=== PATIENT | female | born 1995 | race Caucasian/White ===

== ENCOUNTER 2019-05-19 18:34 | Emergency (ER) | payer SELFPAY ==
--- NOTE | 2019-05-19 18:51 | Emergency Department Record ---
History of Present Illness - General Chief complaint: Female Urogenital Problem Stated complaint: MAY BE PREG AND HAS CRAMPS Time Seen by Provider: 05/19/19 18:36 Source: Patient, Family Mode of Arrival: Ambulatory Limitations: No limitations - History of Present Illness Initial comments: 23 yo female presents with a concern that she is and has some cramping. She has a history of irregular menstrual cycles due to PCOS. She had developed some breast tenderness and nausea so she took a test on Thursday. Her home urine test was positive. She has had a slight tingle of spotting. No prior . PCP is Jameel Cristobal in [place]. Last normal cycle was March. A few months in between cycles is not unusual. -: Days(s) Location: Suprapubic Radiation: Non-radiating Severity: Mild Quality: Aching, Cramping Consistency: Intermittent Improves with: None Worsens with: None Patient : Yes (Home positive test) Associated Symptoms: Abdominal pain, Loss of appetite, Vaginal bleeding (slight spotting) - Related Data Sexually active: Yes Home Medications Medication Instructions Recorded Confirmed Last Taken No Home Med [NO HOME MEDS] 05/19/19 05/19/19 Unknown Allergies Allergy/AdvReac Type Severity Reaction Status Date / Time diphenhydramine HCl Allergy HIVES Verified 05/19/19 18:47 [From Benadryl] Penicillins Allergy HIVES Verified 05/19/19 18:47 Review of Systems Constitutional: Denies: Chills, Fever, Malaise, Weakness Eyes: Denies: Eye discharge, Eye pain, Photophobia, Vision change ENT: Denies: Congestion, Throat pain Respiratory: Denies: Cough, Dyspnea Cardiovascular: Denies: Chest pain, Palpitations, Syncope Endocrine: Denies: Fatigue, Polydipsia, Polyuria Gastrointestinal: Reports: Abdominal pain, Nausea. Denies: Diarrhea, Vomiting Genitourinary: Denies: Dysuria, Urgency Musculoskeletal: Denies: Arthralgia, Back pain, Myalgia Skin: Denies: Bruising, Change in color, Rash Neurological: Denies: Headache Psychiatric: Denies: Anxiety Hematological/Lymphatic: Denies: Easy bleeding, Easy bruising Past Medical History - SOCIAL HISTORY Smoking Status: Never smoker - RESPIRATORY Hx Respiratory Disorders: Yes Hx Asthma: Yes - CARDIOVASCULAR Hx Cardio Disorders: No - NEURO Hx Neuro Disorders: No - GI Hx GI Disorders: Yes Hx Reflux: Yes - Hx Genitourinary Disorders: Yes Comment:: Polycystic Ovarian Syndrome - ENDOCRINE Hx Endocrine Disorders: Yes Hx Thyroid Disease: Yes - MUSCULOSKELETAL Hx Musculoskeletal Disorders: No - PSYCH Hx Psych Problems: No - HEMATOLOGY/ONCOLOGY Hx Hematology/Oncology Disorders: No Family Medical History Hx Cancer: Mother, Grandparents Physical Exam - General General Appearance: Alert, Oriented x3, Cooperative, No acute distress Limitations: No limitations - Head Head exam: Atraumatic, Normal inspection - Eye Eye exam: Normal appearance. negative: Conjunctival injection, Scleral icterus - ENT ENT exam: Normal exam Ear exam: Normal external inspection Nasal Exam: Normal inspection Mouth exam: Normal external inspection - Neck Neck exam: Normal inspection - Respiratory Respiratory exam: Normal lung sounds bilaterally. negative: Respiratory distress - Cardiovascular Cardiovascular Exam: Regular rate, Normal rhythm, Normal heart sounds - GI/Abdominal GI/Abdominal exam: Soft. negative: Distended, Guarding, Hypoactive bowel sounds, Rebound, Rigid, Tenderness - Rectal Rectal exam: Deferred - exam: Adnexal tenderness (L) (minimal), Adnexal tenderness (R) (minimal), Normal bimanual exam, Normal speculum exam, Vaginal discharge (minimal thin white). negative: Abnormal external exam, Adnexal mass (L), Adnexal mass (R), Cervical discharge, cervical motion tenderness, Vaginal bleeding, Vaginal erythema - Extremities Extremities exam: Normal inspection - Back Back exam: Denies: CVA tenderness (R), CVA tenderness (L) - Neurological Neurological exam: Alert, Oriented X3 - Psychiatric Psychiatric exam: Normal affect, Normal mood. negative: Agitated, Anxious - Skin Skin exam: Dry, Intact, Normal color, Warm Course - Reevaluation(s) Reevaluation #1: 05/19/19 19:28 The CBC was reviewed WBC is 14.8 otherwise normal No left shift 05/19/19 19:29 05/19/19 20:00 The Wet prep is negative The HCG total is 9490 Rh + 05/19/19 20:04 I discussed the options at this point. I recommend US to further evaluate. I discussed the option of transfer tonight or return in 11 hours for US at [facility]. She has not pain. Vital are normal. The patient prefers to return in the morning. I think this is very reasonable and safe. I think the likelihood of ectopic is very low based on her symptoms, examination and current state of comfort. We discussed the recommendation to immediately go to [facility] ED if pain occurs between now and 7am. She is judged to be very reliable and will comply if any return of pain Medical Decision Making - Lab Data Result diagrams: 05/19/19 19:18 05/19/19 19:18 Disposition Disposition: Discharge Clinical Impression: Pelvic pain Qualifiers: Weeks of gestation: less than 8 weeks Qualified Code(s): Z3A.01 - Less than 8 weeks gestation of Disposition: Home, Self-Care Condition: (1) Good Instructions: Threatened Miscarriage (ED) Additional Instructions: Return at 7am for an ultrasound Be seen immediately if you have pain prior to 7am Return at 6:45am to check in Drink 2 large glasses (32 ounce) of water 45 minutes prior to returning and do not urinate prior to the ultrasound You have been given a number Referrals: Cathryn Jorgensen D.O. [DOCTOR OF OSTEOPATH] - Forms: Patient Portal Access Time of Disposition: 20:12 Quality - Quality Measures Quality Measures: N/A - Blood Pressure Screening Does Patient Have Any of the Following: No Blood Pressure Classification: Hypertensive Reading Systolic Measurement: 134 Diastolic Measurement: 103 Screening for High Blood Pressure: < Pre-Hypertensive BP, F/U Documented > [G8950] Pre-Hypertensive Follow-up Interventions: Referral to alternative/primary care provider.
[2019-05-19 18:57] LABS: URINE APPEARANCE CLEAR; URINE BILIRUBIN NEGATIVE (NEGATIVE); URINE BLOOD TRACE-I (NEGATIVE); URINE COLOR YELLOW; URINE KETONE 15 mg/dL (NEGATIVE); URINE LEUKOCYTE ESTERASE NEGATIVE (NEGATIVE); URINE NITRITE NEGATIVE (NEGATIVE); URINE PROTEIN NEGATIVE (NEGATIVE); URINE UROBILINOGEN 0.2 E.U./dL (0.20 - 1.00)
[2019-05-19 19:11] LABS: URINE AMORPHOUS SEDIMENT 1+; URINE EPITHELIAL CELLS 16 - 20 (FEW); URINE GLUCOSE (UA) >=1000 mg/dL (NEGATIVE)
[2019-05-19] MEDS ORDERED: 0.9 % SODIUM CHLORIDE 1,000 ML BAG IV ONE (19:13)
[2019-05-19 19:26] LABS: ABSOLUTE NEUTROPHIL COUNT 10.37; BASO % 0.4 % (0-6); EOS % 1.3 % (0-6); GRAN % 69.9 % (47-80); HEMATOCRIT 46.2 % (35.0-47.0); HEMOGLOBIN 15.3 gm/dl (11.6-16.0); LYMPH % 22.3 % (16-45); MEAN CELL VOLUME 88.5 fl (81-97); MEAN CORPUSCULAR HEMOGLOBIN 29.3 pg (27-33); MEAN CORPUSCULAR HGB CONC 33.1 g/dl (32-36); MEAN PLATELET VOLUME 10.4 fl (7.4-10.4); MONO % 6.1 % (0-9); PLATELET COUNT 377 K/uL (130-400); RED BLOOD COUNT 5.22 M/uL (3.80-5.40); RED CELL DISTRIBUTION WIDTH 12.4 % (11.5-14.5); WHITE BLOOD COUNT W/O DIFF 14.8 K/uL (4.2-12.2)
[2019-05-19 19:41] LABS: TOTAL B-hCG 9490 mIU/mL
[2019-05-19 19:46] LABS: BLOOD UREA NITROGEN 10 mg/dL (6-20); CREATININE 0.5 mg/dL (0.5-0.9); EST GLOMERULAR FILTRATION RATE > 60 mL/min
[2019-05-19 19:49] LABS: GLUCOSE,RANDOM 235 mg/dL (74-109)
== END 2019-05-19 20:21 | disposition home or self-care (01) ==
LOC: ER 18:34
DX: O26.891 Other specified pregnancy related conditions, first trimester (principal); R10.2 Pelvic and perineal pain; Z3A.01 Less than 8 weeks gestation of pregnancy
CPT/HCPCS: 80048; 81001; 84702; 85025; 86901; 87210; 99284; J7030

== ENCOUNTER 2019-05-20 06:51 | Emergency (ER) | payer SELFPAY ==
--- NOTE | 2019-05-20 07:03 | Emergency Department Record ---
History of Present Illness <Tran Edmonds - Last Filed: 05/20/19 08:38> - General Source: Patient Mode of Arrival: Ambulatory Limitations: No limitations - History of Present Illness Initial comments: 23 yo female presents for a recheck and pelvic US. She was seen in the ED with a concern that she could be and had some cramping. HCG quant was 9460. She reports no significant pain since initial visit. This is her first . She has a history of PCOS as well. Onset/Timin -: Days(s) Location: Suprapubic Radiation: Other Severity: Mild Quality: Other Consistency: Intermittent Improves with: None Worsens with: None Associated Symptoms: Other (spotting) <GILBERTO CORDOVA - Last Filed: 05/22/19 07:01> - General Chief complaint: Recheck - Other Stated complaint: RECHECK Time Seen by Provider: 05/20/19 06:55 - Related Data Allergies Allergy/AdvReac Type Severity Reaction Status Date / Time diphenhydramine HCl Allergy HIVES Verified 05/19/19 18:47 [From Benadryl] Penicillins Allergy HIVES Verified 05/19/19 18:47 Travel Screening - Travel/Exposure Within Last 30 Days Have you traveled within the last 30 days?: No - Travel/Exposure Within Last Year Have you traveled outside the [place] in the last year?: No - Additonal Travel Details Have you been exposed to anyone with a communicable illness?: No - Travel Symptoms Symptom Screening: None <GILBERTO CORDOVA - Last Filed: 05/22/19 07:01> Review of Systems Constitutional: Denies: Chills, Fever, Malaise, Weakness Eyes: Denies: Eye discharge ENT: Denies: Congestion, Throat pain Respiratory: Denies: Cough Cardiovascular: Denies: Chest pain Endocrine: Denies: Fatigue Gastrointestinal: Reports: Abdominal pain. Denies: Diarrhea, Nausea, Vomiting Genitourinary: Reports: Abnormal menses. Denies: Dysuria, Urgency Musculoskeletal: Denies: Arthralgia, Back pain Skin: Denies: Bruising, Change in color, Rash Neurological: Denies: Headache Psychiatric: Denies: Anxiety Hematological/Lymphatic: Denies: Easy bleeding, Easy bruising <GILBERTO CORDOVA - Last Filed: 05/22/19 07:01> Past Medical History - SOCIAL HISTORY Smoking Status: Never smoker Alcohol Use: None Drug Use: None - RESPIRATORY Hx Respiratory Disorders: Yes Hx Asthma: Yes - CARDIOVASCULAR Hx Cardio Disorders: No - NEURO Hx Neuro Disorders: No - GI Hx GI Disorders: Yes Hx Reflux: Yes - Hx Genitourinary Disorders: Yes Comment:: Polycystic Ovarian Syndrome - ENDOCRINE Hx Endocrine Disorders: Yes Hx Thyroid Disease: Yes - MUSCULOSKELETAL Hx Musculoskeletal Disorders: No - PSYCH Hx Psych Problems: No - HEMATOLOGY/ONCOLOGY Hx Hematology/Oncology Disorders: No <GILBERTO CORDOVA - Last Filed: 05/22/19 07:01> Family Medical History Any Significant Family History?: Yes Hx Cancer: Mother, Grandparents <GILBERTO CORDOVA - Last Filed: 05/22/19 07:01> Physical Exam - General General Appearance: Alert, Oriented x3, Cooperative, No acute distress Limitations: No limitations - Head Head exam: Atraumatic, Normal inspection - Eye Eye exam: Normal appearance - ENT ENT exam: Normal exam Ear exam: Normal external inspection Nasal Exam: Normal inspection Mouth exam: Normal external inspection - Neck Neck exam: Normal inspection - Respiratory Respiratory exam: negative: Respiratory distress - Cardiovascular Cardiovascular Exam: Regular rate, Normal rhythm, Normal heart sounds - GI/Abdominal GI/Abdominal exam: Soft. negative: Tenderness - Rectal Rectal exam: Deferred - exam: Deferred - Extremities Extremities exam: Normal inspection - Back Back exam: Denies: CVA tenderness (R), CVA tenderness (L) - Neurological Neurological exam: Alert, Oriented X3 - Psychiatric Psychiatric exam: Normal affect, Normal mood - Skin Skin exam: Dry, Intact, Normal color, Warm <GILBERTO CORDOVA - Last Filed: 05/22/19 07:01> Course Vital Signs 05/20/19 06:55 Temperature 97.7 F Pulse Rate [ 74 Pulse Ox Probe] Respiratory 20 Rate Blood Pressure 120/80 [Left Arm] Pulse Ox 100 <Tran Edmonds - Last Filed: 05/20/19 08:38> Vital Signs 05/20/19 06:55 Temperature 97.7 F Pulse Rate [ 74 Pulse Ox Probe] Respiratory 20 Rate Blood Pressure 120/80 [Left Arm] Pulse Ox 100 - Reevaluation(s) Reevaluation #1: 05/20/19 06:59 The case was signed out at shift change to Dr Edmonds for US and results <GILBERTO CORDOVA - Last Filed: 05/22/19 07:01> Disposition Disposition: Discharge <Tran Edmonds Foster - Last Filed: 05/20/19 08:38> Disposition: Discharge Time of Disposition: 06:59 <GILBERTO CORDOVA - Last Filed: 05/22/19 07:01> Clinical Impression: Threatened in early Disposition: Home, Self-Care Condition: (1) Good Instructions: Threatened Miscarriage (ED) Additional Instructions: follow up with ob doctor. return sooner if worse. rest. no sex for 2 weeks. have lab test repeated in 2-3 days. Forms: Patient Portal Access Quality - Quality Measures Quality Measures: N/A - Blood Pressure Screening Does Patient Have Any of the Following: No Blood Pressure Classification: Pre-Hypertensive BP Reading Systolic Measurement: 120 Diastolic Measurement: 80 Screening for High Blood Pressure: < Pre-Hypertensive BP, F/U Documented > [G8950] Pre-Hypertensive Follow-up Interventions: Follow-up with rescreen every year. <Tran Edmonds Foster - Last Filed: 05/20/19 08:38> - : US Determination US Determination of Location: < Trans-Abdominal or Trans-Vaginal US Performed > [G8806] - Blood Pressure Screening Does Patient Have Any of the Following: No Blood Pressure Classification: Pre-Hypertensive BP Reading Systolic Measurement: 127 Diastolic Measurement: 88 Screening for High Blood Pressure: < Pre-Hypertensive BP, F/U Documented > [G8950] Pre-Hypertensive Follow-up Interventions: Referral to alternative/primary care provider. <GILBERTO CORDOVA - Last Filed: 05/22/19 07:01>
--- NOTE | 2019-05-20 08:29 | ULTRASOUND REPORT ---
EXAMINATION: Ultrasound Uterus Less Than 14 Weeks EXAM DATE: 05/20/2019 8:14 AM TECHNIQUE: Transabdominal and transvaginal ultrasound imaging of the pelvis was performed. Images we re recorded and stored on PACS. INDICATION: spotting COMPARISON: None. FINDINGS: Location: Intrauterine. Gestational sac: Normal. Yolk sac: Present pole: Present Embryo heart rate: 163 BPM. Normal. Placenta: Too early to evaluate.. position: Early gestation, not applicable. Gestation: Steinberg . Amniotic fluid: Normal volume. Additional findings: None. Biometry: Kinsman-rump length: 0.36 cm. 5 weeks 6 days. MINA 01/14/2020 Mean gestational sac size: 1.4 cm Clinical gestational age from LMP: 7 weeks, 2 days. MINA: 01/04/2020 Best gestational age determined by ultrasound. Maternal Pelvis: Uterus: No abnormality in the visualized uterus. Cervix: Unremarkable cervical, transabdominal technique. Right ovary: Duplex Doppler interrogation reveals appropriate arterial and venous blood flow. There is a 1.3 cm simple corpus luteum. Ovary measures 4.4 x 3.0 x 5.5 cm Left ovary: Duplex Doppler interrogation reveals appropriate arterial and venous blood flow. Ovary m easures 2.8 x 2.1 x 5.6 cm. Cul-de-sac: Unremarkable. IMPRESSION: Single live intrauterine of 5 weeks, 6 days gestational age by current ultrasound. MINA: 01/14/2020 Otherwise unremarkable. No specific abnormalities at this time. Dictated by: Jaun Messina DO on 05/20/2019 8:21 AM. .
== END 2019-05-20 09:15 | disposition home or self-care (01) ==
LOC: ER 06:51
DX: O20.0 Threatened abortion (principal); Z3A.01 Less than 8 weeks gestation of pregnancy
CPT/HCPCS: 76801; 76817; 99283

== ENCOUNTER 2019-08-05 02:26 | Emergency (ER) | payer SELFPAY ==
--- NOTE | 2019-08-05 02:49 | Emergency Department Record ---
History of Present Illness - General Chief complaint: complication Stated complaint: POSSIBLE M/C Time Seen by Provider: 08/05/19 02:29 Source: Patient Mode of Arrival: Ambulatory Limitations: No limitations - History of Present Illness Initial comments: 24 yo at 14 weeks gestation presents to ED for evaluation of vaginal bleeding symptoms that began approximately 1 hour prior to arrival. Patient reports uterine cramping symptoms for the past several days with mild spotting present, reports that she has not seen her OB ([facility]) as of yet, has appointment scheduled in 4 days. Patient denies fevers, chills, or recent illness, and denies previous history of bleeding disorders. MD Complaint: Abdominal pain, Vaginal bleeding -: Days(s) Location: Pelvis Radiation: None Severity: Moderate Quality: Cramping Consistency: Constant Improves with: None Worsens with: None Associated symptoms: Denies other symptoms Vaginal bleeding: Heavy No complications No complications - Related Data Home Medications Medication Instructions Recorded Confirmed Last Taken [id number]/Iron/Folic Acid/Dha 1 cap PO DAILY 08/05/19 08/05/19 08/04/19 [Prena1 Shonna Softgel] Allergies Allergy/AdvReac Type Severity Reaction Status Date / Time diphenhydramine HCl Allergy HIVES Verified 05/19/19 18:47 [From Benadryl] Penicillins Allergy HIVES Verified 05/19/19 18:47 Review of Systems Constitutional: Denies: Chills, Fever, Malaise, Night sweats Eyes: Denies: Eye discharge, Eye pain ENT: Denies: Congestion, Ear pain, Epistaxis Respiratory: Denies: Cough, Dyspnea Cardiovascular: Denies: Chest pain, Dyspnea on exertion Endocrine: Denies: Fatigue, Heat or cold intolerance Gastrointestinal: Reports: Abdominal pain. Denies: Nausea, Vomiting Genitourinary: Denies: Incontinence, Retention Musculoskeletal: Denies: Arthralgia, Back pain Skin: Denies: Bruising, Change in color Neurological: Denies: Abnormal gait, Confusion, Headache, Seizure Psychiatric: Denies: Anxiety Hematological/Lymphatic: Denies: Anemia, Blood Clots Past Medical History - SOCIAL HISTORY Smoking Status: Never smoker Drug Use: None - RESPIRATORY Hx Respiratory Disorders: Yes Hx Asthma: Yes - CARDIOVASCULAR Hx Cardio Disorders: No - NEURO Hx Neuro Disorders: No - GI Hx GI Disorders: Yes Hx Reflux: Yes - Hx Genitourinary Disorders: Yes Comment:: Polycystic Ovarian Syndrome - ENDOCRINE Hx Endocrine Disorders: Yes Hx Thyroid Disease: Yes - MUSCULOSKELETAL Hx Musculoskeletal Disorders: No - PSYCH Hx Psych Problems: No - HEMATOLOGY/ONCOLOGY Hx Hematology/Oncology Disorders: No Family Medical History Hx Cancer: Mother, Grandparents Physical Exam - General General Appearance: Alert, Oriented x3, Cooperative, Mild distress, Anxious Limitations: No limitations - Head Head exam: Atraumatic, Normocephalic, Normal inspection Head exam detail: negative: Abrasion, Contusion, Roa's sign, General tenderness, Hematoma, Laceration - Eye Eye exam: Normal appearance. negative: Conjunctival injection, Periorbital swelling, Periorbital tenderness, Scleral icterus - ENT Ear exam: negative: Auricular hematoma, Auricular trauma Nasal Exam: negative: Active bleeding, Discharge, Dried blood, Foreign body Mouth exam: negative: Drooling, Laceration, Muffled voice, Tongue elevation - Neck Neck exam: Normal inspection. negative: Meningismus, Tenderness - Respiratory Respiratory exam: Normal lung sounds bilaterally. negative: Rales, Respiratory distress, Rhonchi, Stridor - Cardiovascular Cardiovascular Exam: Regular rate, Normal rhythm, Normal heart sounds - GI/Abdominal GI/Abdominal exam: Soft. negative: Rebound, Rigid, Tenderness - Rectal Rectal exam: Deferred - exam: Other (Dilated cervical os with POC present, numerous clots and blood removed on examination.) - Extremities Extremities exam: Normal inspection. negative: Pedal edema, Tenderness - Back Back exam: Denies: CVA tenderness (R), CVA tenderness (L) - Neurological Neurological exam: Alert, Normal gait, Oriented X3 - Psychiatric Psychiatric exam: Anxious - Skin Skin exam: Normal color. negative: Abrasion Type of lesion: negative: abrasion Course - Reevaluation(s) Reevaluation #1: 08/05/19 03:13 Laboratory studies were reviewed and appear grossly unremarkable for an acute process. Hgb 13.9 Case was discussed with Dr. Farley (ED at [facility]), will accept transfer with OB consultation. I also spoke with Dr. Wang (OB resident), will evaluate the patient in the ED upon arrival. Medical Decision Making - Lab Data Result diagrams: 08/05/19 02:50 08/05/19 02:50 Disposition Disposition: Transfer Clinical Impression: Spontaneous miscarriage Disposition: Acute Care Hospital Transfer Transfer To: [facility] Reason For Transfer: OB cosultation for retained POC Accepting Physician: Miguelito Time Discussed w/Accepting Physician: 03:15 Condition: (2) Stable Forms: Patient Portal Access Time of Disposition: 03:15 Quality - Quality Measures Quality Measures: N/A, (14-50yr) - : US Determination US Determination of Location: Trans-Abdominal or Trans-Vaginal US NOT Performed w/Reasons [G8807] Reason for No US: Documented Intrauterine - : Rhogam Quality Measure: Measure #255: Rhogam for Rh-Negative Women ICD10 Codes Entered: Yes Rhogam for Rh-Negative Women at Risk: Rh-immunoglobulin NOT Ordered [G8811] - Blood Pressure Screening Does Patient Have Any of the Following: No Blood Pressure Classification: Hypertensive Reading Systolic Measurement: 139 Diastolic Measurement: 96 Screening for High Blood Pressure: < First Hypertensive BP, F/U Documented > [G8950] First Hypertensive Follow-up Interventions: Referral to alternative/primary care provider.
[2019-08-05 03:00] LABS: ABSOLUTE NEUTROPHIL COUNT 11.47; BASO % 0.3 % (0-6); EOS % 0.9 % (0-6); GRAN % 72.3 % (47-80); HEMOGLOBIN 13.9 gm/dl (11.6-16.0); LYMPH % 18.9 % (16-45); MEAN CELL VOLUME 94.3 fl (81-97); MEAN CORPUSCULAR HEMOGLOBIN 30.5 pg (27-33); MEAN CORPUSCULAR HGB CONC 32.3 g/dl (32-36); MEAN PLATELET VOLUME 10.5 fl (7.4-10.4); MONO % 7.6 % (0-9); PLATELET COUNT 338 K/uL (130-400); RED BLOOD COUNT 4.56 M/uL (3.80-5.40); RED CELL DISTRIBUTION WIDTH 12.2 % (11.5-14.5); WHITE BLOOD COUNT W/O DIFF 15.9 K/uL (4.2-12.2)
[2019-08-05 03:13] LABS: BLOOD UREA NITROGEN 10 mg/dL (6-20); CREATININE 0.5 mg/dL (0.5-0.9); EST GLOMERULAR FILTRATION RATE > 60 mL/min
[2019-08-05 03:14] LABS: TOTAL PROTEIN 7.5 g/dL (6.6-8.7)
[2019-08-05 03:16] LABS: GLUCOSE,RANDOM 236 mg/dL (74-109)
[2019-08-05 03:19] LABS: ALB/GLOB RATIO 1.3 (1.1-1.8); ALBUMIN 4.2 g/dL (4.0-5.0); ALKALINE PHOSPHATASE 66 U/L (35-104); ALT/SGPT 11 U/L (<33); AST/SGOT 16 U/L (10.0-35.0)
== END 2019-08-05 03:36 | disposition short-term general hospital (02) ==
LOC: ER 02:26
DX: O03.9 Complete or unspecified spontaneous abortion without complication (principal)
CPT/HCPCS: 80053; 85025; 99285